=== PATIENT | female | born 1970 | race Caucasian/White ===

== ENCOUNTER 2020-10-25 20:57 | Emergency (ER) | payer OTHER ==
[~2020-10-25] VITALS: Ht 154.9 cm; Wt 56.7 kg
--- NOTE | ~2020-10-25 | EMS ---
[address] [address] EMS Patient Care Report Name: SHANNAN BOOTHE Room #: DEP Claire#: [id number] Admission: 10/25/20 Attend Phys: Discharge: 10/25/20 Date of : 68 Report #: [id number] THIS REPORT FOR: //name// Report Transmitted: 10/26/2020 06:49 EMS Care Summary [facility] MED-ACT Incident [id number] @ 10/25/2020 20:02 Incident Location [address] [place] [address] Patient SHANNAN BOOTHE Female, 50 Years 1970 Patient Address Patient History Stroke/CVA,Cardiac - Stent, Patient Allergies Diphenhydramine, Patient Medications None Reported, Chief Complaint headache Disposition Transported No Lights/[place] Reason Unconscious/Fainting Transported To [facility] Narrative Bystander states that he noticed pt lying on the sidewalk with her eyes closed and a cigarette in her mouth. Bystander states that pt did not wake up until he was next to her. Pt states that she is tired and hasn't slept well in three days. Pt states that she has been trying to call a taxi for the last 3 hours but has not gotten one yet. EMS offered to help her call a taxi but pt refused. Pt states that she has had a headache for the last two days. Pt states that she [address] [address] EMS Patient Care Report Name: SHANNAN BOOTHE Room #: DEP [facility]#: [id number] Admission: 10/25/20 Attend Phys: Discharge: 10/25/20 Date of : 68 Report #: [id number] has history of headaches and has not taken anything for relief. Pt denies having any chest pain, difficulty breathing, weakness on one side of her body vs the other (more than normal), change in sensation, numbness, tinging, or any other complaint. Pt denied taking any drugs or ETOH today. Pt would not say if she has a mailing address. Pt poor historian and would only answer select questions, and was vague in many of her answers. Arrived on scene to find pt sitting upright on the curb outside of [facility]. Pts skin - pink, warm and dry. RR- 16/min, non-labored with no accessory muscle use. Pt alert and orientated, but would not be forthcoming with EMS and would only answer selective questions. Delayed on scene due to pt being indecisive on refusal or transport of EMS services. Pt eventually decided that she wanted EMS to transport her to [facility] for evaluation. EMS offered the pt closer hospitals but pt refused and stated that she only wanted to go to [facility]. EMS acknowledged pts request. Pt ambulated to cot inside of MICU with assistance and without incident. Pt assisted to position of comfort and buckled into cot. Biocom given to receiving hospital without orders. Pt transported to hospital without incident. Pt slept comfortably in route. Pt transferred from cot to hospital bed via lateral sheet transfer without incident. Pt care and report transferred to hospital staff. All of pts belongings left with pt at hospital Initial Vitals @20:51P: 70,R: 16,BP: 147/67,GCS: 15,SpO2: 94,Revised Trauma: 12, @20:38P: 82,R: 16,BP: 130/87,GCS: 15,SpO2: 94,Revised Trauma: 12, @20:10P: 102,R: 16,BP: 164/86,Pain: 2/10,GCS: 15,Temp: 98.7F,SpO2: 96,Revised Trauma: 12, Impression Headache Procedures @20:30Surgical Mask on PatientResponse: Unchanged Timeline 20:01,Call Received 20:01,Psap Call 20:02,Dispatched 20:03,En Route 20:07,On Scene 20:09,At Patient 20:10,BP: 164/86 M,PULSE: 102,RR: 16 R,SPO2: 96 Ox,ETCO2: ,BG: ,PAIN: 2,GCS: 15, 20:30,Surgical Mask on Patient,Response: Unchanged [facility] [address] [place] [address] EMS Patient Care Report Name: SHANNAN BOOTHE Room #: DEP ER MR.#: [id number] Admission: 10/25/20 Attend Phys: Discharge: 10/25/20 Date of : 68 Report #: [id number] 20:38,BP: 130/87 M,PULSE: 82,RR: 16 R,SPO2: 94 Ox,ETCO2: ,BG: ,PAIN: ,GCS: 15, 20:39,Depart Scene 20:51,BP: 147/67 M,PULSE: 70,RR: 16 R,SPO2: 94 Ox,ETCO2: ,BG: ,PAIN: ,GCS: 15, 20:54,At Destination 21:11,Call Closed Disclaimer v1.1 Copyright 2020 [employer] This EMS Care Summary contains data elements from the applicable legal record (which may be displayed differently). It is designed to provide pertinent information for the following purposes: continuity of care, clinical quality, and state data reporting. The complete legal record is available to ED staff and administrators of the receiving hospital in [employer]'s Patient Tracker. All data is provided "as is."
[~2020-10-25 20:57] MED LIST: ALL DAY ALLERGY10 MG; APAP500; CARISOPRODOL 3350 MG PO; CATAPRES0.2 MG PO; CLONAZEPAM 1 MG1 M1 PO; CLONAZEPAM2 MG PO; CLONIDINE HCL0.2 M2 PO; EXCEDRIN CAPLE1 EACH PO; FLEXERIL PO; GABAPENTIN 100100 MG PO; GABAPENTIN600 M1 PO; HYDRALAZINE 2525 MG GT; HYDRALAZINE 2525 MG PO; HYDROCODON-ACE1 EAC8 PO; HYDROCODONE-AP1 EAC6 PO; IBUPROFEN 600600 M1 PO; IBUPROFEN 800800 M1 PO; METHADONE HCL40 MG PO; NEURONTIN600 MG PO; NORCO 5-325 TA1 EACH PO; OXYCONTIN10 M1 PO; POTASSIUM20 PO; PRILOSEC 20 MG20 MG PO; TRAMADOL 50 MG50 MG PO; ULTRAM 50MG TAB50 MG PO; VALIUM10 MG PO; VALIUM2 MG PO; VALIUM5 MG PO; XANAX 0.25 MG0.25 MG PO; XANAX1 MG PO; ZOFRAN ODT4 MG DISSOLVE; ZOFRAN ODT4 MG PO
[2020-10-25 22:25] LABS: HEMATOCRIT 33.7 % (37.0-47.0); HEMOGLOBIN 10.8 gm/dL (12.0-15.0); MCH 28.6 pg (26.0-34.0); MCV 89.5 fL (80.0-100.0); RBC 3.77 mil/uL (4.20-5.00); RDW 15.8 % (10.5-14.5); WBC 5.4 thou/uL (4.0-11.0)
[2020-10-25 22:26] LABS: URINE BILIRUBIN 1+ (Negative); URINE BLOOD TRACE (Negative); URINE CLARITY CLOUDY; URINE COLOR YELLOW; URINE GLUCOSE-RANDOM* NEGATIVE (Negative); URINE KETONES 1+ (Negative); URINE PROTEIN (DIPSTICK) TRACE (Negative); URINE SPECIFIC GRAVITY >= 1.030 (1.005-1.035)
[2020-10-25 22:35] LABS: CALCIUM 9.8 mg/dL (8.5-10.1); CREATININE 0.9 mg/dL (0.6-1.0); POTASSIUM 3.4 mmol/L (3.5-5.1)
[2020-10-25 22:38] LABS: URINE LEUKOCYTES-REFLEX 2+ (Negative); URINE NITRITE-REFLEX POSITIVE (Negative)
[2020-10-25 22:40] LABS: SQUAMOUS 4-10 Moderate /LPF (0-3); URINE RBC 1-2 Rare /HPF (NONE SEEN); WBC CLUMPS Few (None Seen)
[2020-10-25 22:41] LABS: CASTS None Seen /LPF (None Seen); CRYSTALS None Seen /LPF (None Seen); MUCUS 4-6 Moderate strn/LPF (None Seen)
[2020-10-25 22:45] LABS: ALBUMIN 3.3 g/dL (3.4-5.0); TOTAL BILIRUBIN 0.5 mg/dL (0.2-1.0); TOTAL PROTEIN 7.4 g/dL (6.4-8.2)
[2020-10-25 22:57] LABS: AMP/METHAMP Negative (Negative); BARBITURATES Negative (Negative); BENZODIAZEPINES Negative (Negative); COCAINE Negative (Negative); METHADONE POSITIVE (Negative); OPIATES Negative (Negative); PCP Negative (Negative)
[2020-10-25] MEDS ORDERED: CEPHALEXIN500 MG PO (23:16)
[2020-10-26 00:03] VITALS: BP 165/94
--- NOTE | 2020-10-26 07:31 | EKG ---
[place] [address] [facility] [place] [address] ELECTROCARDIOGRAM REPORT Name: SHANNAN BOOTHE Room #: DEP [facility]#: [id number] Admission: 10/25/20 Attend Phys: Discharge: 10/25/20 Date of : 68 Report #: [id number] [facility] ED Test Date: 2020-10-25 Test Time: 21:32:58 Pat Name: SHANNAN BOOTHE Department: Room: Gender: F Button Grader: mparurszula : 1970 Requested By: Brittany Trevino Order Number: [id number] MD: Ike Huang Measurements Intervals [place] Rate: 67 P: 15 MS: 154 QRS: -14 QRSD: 101 T: -8 QT: 418 QTc: 442 Interpretive Statements Sinus rhythm Left ventricular hypertrophy Borderline T abnormalities, inferior leads Compared to ECG 11/29/2014 17:54:42 Left ventricular hypertrophy now present T-wave abnormality now present Electronically Signed On 10-26-2020 7:31:13 CDT by Ike Huang [email or web address] <ELECTRONICALLY SIGNED> By: Ike Huang MD, [facility] 10/26/20 0731 31 31 Ike Huang MD, [facility] /EPI
== END 2020-10-25 23:25 | disposition left against medical advice (07) ==
LOC: ER 20:57
PROVIDERS: Nurse Practitioner Family
DX: S82.61XA Displaced fracture of lateral malleolus of right fibula, initial encounter for closed fracture (principal); Z20.822 Contact with and (suspected) exposure to COVID-19; N39.0 Urinary tract infection, site not specified; G43.909 Migraine, unspecified, not intractable, without status migrainosus; I10 Essential (primary) hypertension; F41.9 Anxiety disorder, unspecified; F17.210 Nicotine dependence, cigarettes, uncomplicated; Z90.710 Acquired absence of both cervix and uterus; Z90.89 Acquired absence of other organs; Z90.49 Acquired absence of other specified parts of digestive tract; Z79.899 Other long term (current) drug therapy; Z79.1 Long term (current) use of non-steroidal anti-inflammatories (NSAID); Z88.6 Allergy status to analgesic agent; Z88.1 Allergy status to other antibiotic agents; Z88.5 Allergy status to narcotic agent; Z88.0 Allergy status to penicillin; Z88.8 Allergy status to other drugs, medicaments and biological substances; Z09 Encounter for follow-up examination after completed treatment for conditions other than malignant neoplasm; W18.39XA Other fall on same level, initial encounter; Y93.89 Activity, other specified; Y92.89 Other specified places as the place of occurrence of the external cause; Y99.8 Other external cause status